=== PATIENT | female | born 1960 | race Caucasian/White ===

== ENCOUNTER 2022-01-26 23:51 | Observation (INO) | payer BC ==
[2022-01-27] MEDS ORDERED: SODIUM CHLORIDE 0.9% 1,000 ML IV STA (00:22)
[2022-01-27] MEDS ORDERED: NITROGLYCERIN SL TABS 0.4 MG TAB SUBLINGUAL STA (00:22)
--- NOTE | 2022-01-27 00:27 | ED ---
Chest Pain HPI - General Chief Complaint: Chest Pain Stated Complaint: Chest Pain Time Seen by Provider: 01/27/22 00:16 Source: patient, RN notes reviewed Mode of arrival: ambulatory Limitations: no limitations - History of Present Illness Initial Comments: This is a pleasant 61-year-old female presents to the right department with chest tightness which started yesterday which radiates to the neck and to the back. No headache, no fever or chills, no changes in vision or hearing, no sore throat or difficulty with speech, no neck pain, no shortness of breath, no abdominal pain, no nausea or vomiting, no changes in urination or bowel movements, no numbness or tingling, no extremity pain, no skin rashes or lesions. Past medical, surgical, social, and family history reviewed. MD Complaint: chest pain - Related Data Allergies Allergy/AdvReac Type Severity Reaction Status Date / Time No Known Allergies Allergy Verified 01/27/22 00:10 Review of Systems ROS Statement: Those systems with pertinent positive or pertinent negative responses have been documented in the HPI. ROS Other: All systems not noted in ROS Statement are negative. EKG Findings - EKG Comments: EKG Findings:: EKG done at 0058 reviewed by myself as well as attending physician reveals sinus rhythm with nonspecific ST and T-wave normalities. No evidence of significant ST elevation or depression. Normal axis. Poor R wave progression. Some baseline artifact. Normal QRS morphology. No comparison study Past Medical History Past Medical History: No Reported History History of Any Multi-Drug Resistant Organisms: None Reported Past Surgical History: No Surgical Hx Reported Past Psychological History: No Psychological Hx Reported Smoking Status: Current every day smoker Past Alcohol Use History: Occasional Past Drug Use History: None Reported General Exam - General Exam Comments Initial Comments: Patient hypertensive, remainder of vital signs are stable. Patient in no significant distress Limitations: no limitations General appearance: alert, in no apparent distress Head exam: Present: atraumatic, normocephalic, normal inspection Eye exam: Present: normal appearance, PERRL, EOMI. Absent: scleral icterus, conjunctival injection, periorbital swelling ENT exam: Present: normal exam, mucous membranes moist Neck exam: Present: normal inspection, full ROM. Absent: tenderness, meningismus, lymphadenopathy Respiratory exam: Present: normal lung sounds bilaterally, chest wall tenderness (Patient does have some anterior chest wall tenderness.). Absent: respiratory distress, wheezes, rales, rhonchi, stridor, accessory muscle use Cardiovascular Exam: Present: regular rate, normal rhythm, normal heart sounds. Absent: systolic murmur, diastolic murmur, rubs, gallop, clicks GI/Abdominal exam: Present: soft, normal bowel sounds. Absent: distended, tenderness, guarding, rebound, rigid Extremities exam: Present: normal inspection, full ROM, normal capillary refill. Absent: tenderness, pedal edema, joint swelling, calf tenderness Back exam: Present: normal inspection Neurological exam: Present: alert, oriented X3, CN II-XII intact Psychiatric exam: Present: normal affect, normal mood Skin exam: Present: warm, dry, intact, normal color. Absent: rash Course Vital Signs 01/27/22 00:06 Temperature 98.2 F Pulse Rate 85 Respiratory 20 Rate Blood Pressure 198/112 O2 Sat by Pulse 97 Oximetry - Reevaluation(s) Reevaluation #1: 01/27/22 02:55 Medical record is reviewed Patient improved, blood pressure down to 143/81 I'm in the room. Patient has no significant pain at this time. Patient is informed of results and questions answered Patient in no distress Chest Pain MDM - [facility] Patient is a cigarette smoker. Presents with chest pain which started yesterday. Radiating to the neck and back. Patient noted to be hypertensive greater than 190/110. Given the patient's symptomology, cardiac ischemia certainly within the differential. Patient does state that the pain seems to get worse when she moves. [place] skeletal pain possible. Does not appear to be consistent with pulmonary etiology. Not consistent with pulmonary embolism. Does not appear to be consistent with infectious etiology or pneumonia. Patient's heart score is 3. We'll give aspirin and apply Nitropaste once the CTA is received if normal. Patient was reevaluated and was improved after nitroglycerin. Patient's blood pressure come down after nitroglycerin. We'll apply nitroglycerin ointment. 2:53 AM. Still awaiting patient's official CTA chest results. The case was discussed in detail with ED attending physician. Presentation, findings, treatment plan discussed in detail. Manager Support Services Dr. Bro Awaiting call from the patient's PCP/admitting physician, Dr. Andino at 3:18 AM Disposition Clinical Impression: Chest pain, Hypertensive urgency Disposition: ADMITTED IP TO THIS HOSP Condition: Good Is patient prescribed a controlled substance at d/c from ED?: No Referrals: Ricardo Andino MD [Primary Care Provider] - 1-2 days Time of Disposition: 02:30 Decision to Admit Reason: Admit from EC Decision Time: 02:30
--- NOTE | 2022-01-27 01:18 | XR ---
EXAMINATION TYPE: XR chest 1V portable DATE OF EXAM: 01/27/2022 COMPARISON: NONE HISTORY: Chest pain TECHNIQUE: FINDINGS: Heart is normal. Lungs are clear of infiltrate. There is no heart failure. There are no hil ar masses. There is some minimal pleural reaction lateral left lung base. Bony thorax is intact. IMPRESSION: Minimal pleural reaction at the left lung base. Normal heart.
[2022-01-27 01:30] LABS: Basophils # (A) 0.1 k/uL (0-0.2); Basophils % (A) 1 %; Eosinophils # (A) 0.2 k/uL (0-0.7); Eosinophils % (A) 2 %; HCT 42.1 % (34.0-46.0); HGB 13.5 gm/dL (11.4-16.0); Lymphocytes # (A) 4.4 k/uL (1.0-4.8); Lymphocytes % (A) 36 %; MCH 28.1 pg (25.0-35.0); MCV 87.8 fL (80.0-100.0); Mean Platelet Volume 7.8; Monocytes # (A) 0.7 k/uL (0-1.0); Monocytes % (A) 6 %; Neutrophils # (A) 6.6 k/uL (1.3-7.7); Neutrophils % (A) 54 %; Platelet Count 335 k/uL (150-450); RBC 4.79 m/uL (3.80-5.40); RDW 13.2 % (11.5-15.5); WBC 12.2 k/uL (3.8-10.6)
[2022-01-27 01:44] LABS: ALT 37 U/L (4-34); AST 27 U/L (14-36); African American GFR (CKD) >90 (>60 ml/min/1.73 sqM); Albumin 4.1 g/dL (3.5-5.0); Alkaline Phosphatase 123 U/L (38-126); Anion Gap 5 mmol/L; Blood Urea Nitrogen 15 mg/dL (7-17); Calcium 9.2 mg/dL (8.4-10.2); Carbon Dioxide 25 mmol/L (22-30); Chloride 110 mmol/L (98-107); Glucose 94 mg/dL (74-99); Magnesium 1.8 mg/dL (1.6-2.3); Non-African American GFR(CKD) 83 (>60 ml/min/1.73 sqM); Potassium 3.9 mmol/L (3.5-5.1); Sodium 140 mmol/L (137-145); Total Bilirubin 0.2 mg/dL (0.2-1.3); Total Protein 6.9 g/dL (6.3-8.2)
--- NOTE | 2022-01-27 02:58 | CT ---
EXAMINATION TYPE: CT angio thor/abd pel aorta DATE OF EXAM: 01/27/2022 COMPARISON: HISTORY: chest pain radiating to back CT DLP: 1004.5 mGycm Automated exposure control for dose reduction was used. CONTRAST: Performed with IV Contrast, patient injected with 100 mL of Isovue 370. Images obtained from the thoracic inlet to the floor of the pelvis without and subsequently with the IV contrast. There are Three-D postprocessed images. The lungs are clear of consolidation. No pleural effusion. There is mild subsegmental atelectasis in the posterior lung bases. No pleural effusion. No pericardial effusion. Heart size is normal. There is no mediastinal adenopathy. There are no hilar masses. There is normal contrast opacification of the pulmonary arteries. No filling defect. Thoracic aorta is intact. No aneurysm or dissection. A ortic arch is intact. Liver spleen and stomach pancreas and gallbladder appear intact. The bile ducts are not dilated. Ther e is no adrenal mass. Kidneys show satisfactory contrast opacification. There is no hydronephrosis. A bdominal aorta is atheromatous. Ureters are not dilated. No retroperitoneal adenopathy. The bladder d istends smoothly. No inguinal hernia. No free fluid in the pelvis. No pelvic mass. Appendix is posterior and appears normal. There is no mesenteric edema. No ascites or free air. No sign of a bowel obstruction. Abnormal aorta has normal size. No aneurysm. There is arterial flow in the celiac artery and superior mesenteric artery. There is arterial flow in the renal and iliac and femoral arteries. No evidence o f arterial aneurysm or dissection. No evidence of hemodynamic stenosis. There is some plaque formatio n on the posterior wall of the lower abdominal aorta. No significant stenosis. The thoracic and lumbar spine are intact. No compression fracture. Bony pelvis is intact. The hip long nts are intact. IMPRESSION: There is some mild abdominal aortic atherosclerotic vascular disease with posterior plaque formation. No evidence of hemodynamic stenosis. No arterial aneurysm or dissection. No evidence of pulmonary embolism. There is some mild subsegmental atelectasis at the lung bases. No suspicious pulmonary mass.
[2022-01-27] MEDS ORDERED: NITROGLYCERIN OINT 1 INCH/GM PACKET TOPICAL STA (03:05)
[2022-01-27] MEDS ORDERED: ASPIRIN 81 MG PO STA (03:05)
[2022-01-27] MEDS ORDERED: NITROGLYCERIN SL TABS 0.4 MG TAB SUBLINGUAL PRN (03:06)
[2022-01-27] MEDS: NITROGLYCERIN OINT 1 INCH/GM PACKET TOPICAL SCH ×4 (06:28→23:16)
--- NOTE | 2022-01-27 10:11 | P.CRDCN ---
History of Present Illness Consult date: 01/27/22 Chief complaint: Chest pain History of present illness: This is a 61-year-old female patient with a past medical history significant for smoking as well as dyslipidemia as well as hypertension stopped taking her medications values ago presented to the hospital complaining of chest discomfort. She was in her usual state of health until yesterday when she was with her daughter and she started experiencing discomfort in the chest as a pressure on the chest with no radiation and no associated symptoms. She measured her pressure under pressure was elevated above 180 mmHg systolic. She decided to come to the emergency department. Her pressure has been elevated throughout her hospital stay. She underwent a workup including EKG showing si nus rhythm with no significant ST or T-wave abnormalities and also she underwent a blood work came in to be unremarkable for enzymes abnormalities. The rest of her blood work came in to be unremarkable. Currently the patient is chest pain- free. The pressure continues to be consistent with stage II hypertension with systolic pressure about 1 40 mmHg. Currently she is on Nitropaste as well. Past Medical History Past Medical History: No Reported History History of Any Multi-Drug Resistant Organisms: None Reported Past Surgical History: No Surgical Hx Reported Past Anesthesia/Blood Transfusion Reactions: No Reported Reaction Past Psychological History: No Psychological Hx Reported Smoking Status: Current every day smoker Past Alcohol Use History: Occasional Past Drug Use History: None Reported Medications and Allergies Allergies Allergy/AdvReac Type Severity Reaction Status Date / Time No Known Allergies Allergy Verified 01/27/22 00:10 Physical Exam Vitals: Vital Signs Temp Pulse Pulse Resp BP BP Pulse Ox 01/27/22 08:51 96 01/27/22 08:05 98 F 71 15 149/69 96 01/27/22 07:18 96 18 156/83 97 01/27/22 03:10 72 18 140/76 95 01/27/22 00:06 98.2 F 85 20 198/112 97 Intake and Output 01/26/22 01/27/22 01/27/22 22:59 06:59 14:59 Other: Weight 68.039 kg 68.039 kg - Constitutional General appearance: no acute distress - Respiratory Respiratory: bilateral: CTA - Cardiovascular Rhythm: regular Heart sounds: normal: S1, S2 Abnormal Heart Sounds: systolic murmur Results 01/27/22 01:22 01/27/22 01:22 Cardiac Enzymes 01/27/22 01/27/22 01/27/22 Range/Units 01:22 01:22 05:37 AST 27 (14-36) U/L Troponin I <0.012 <0.012 (0.000-0.034) ng/mL CBC 01/27/22 Range/Units 01:22 WBC 12.2 H (3.8-10.6) k/uL RBC 4.79 (3.80-5.40) m/uL Hgb 13.5 (11.4-16.0) gm/dL Hct 42.1 (34.0-46.0) % Plt Count 335 (150-450) k/uL Comprehensive Metabolic Panel 01/27/22 Range/Units 01:22 Sodium 140 (137-145) mmol/L Potassium 3.9 (3.5-5.1) mmol/L Chloride 110 H (98-107) mmol/L Carbon Dioxide 25 (22-30) mmol/L BUN 15 (7-17) mg/dL Creatinine 0.78 (0.52-1.04) mg/dL Glucose 94 (74-99) mg/dL Calcium 9.2 (8.4-10.2) mg/dL AST 27 (14-36) U/L ALT 37 H (4-34) U/L Alkaline Phosphatase 123 (38-126) U/L Total Protein 6.9 (6.3-8.2) g/dL Albumin 4.1 (3.5-5.0) g/dL Current Medications Generic Name Dose Route Start Last Admin Trade Name Freq PRN Reason Stop Dose Admin Aspirin 325 mg 01/28/22 09:00 Aspirin 325 Mg Tab PO DAILY WADE HCTZ/Losartan Potassium 1 each 01/27/22 10:15 Losartan-Hctz 50-12.5 Mg 1 Each Tab PO DAILY WADE Heparin Sodium (Porcine) 5,000 unit 01/27/22 08:00 Heparin Sodium,Porcine/Pf 5,000 Unit/0.5 Ml Syringe SQ Q8HR WADE Sodium Chloride 1,000 mls @ 100 mls/hr 01/27/22 00:22 Saline 0.9% IV 01/27/22 10:21 .Q10H STA Nitroglycerin 0.4 mg 01/27/22 03:06 Nitroglycerin Sl Tabs 0.4 Mg Tab SUBLINGUAL Q5M PRN Chest Pain Nitroglycerin 1 inch 01/27/22 06:00 01/27/22 06:28 Nitroglycerin Oint 1 Inch/Gm Packet TOPICAL 1 inch Q6HR WADE Administration Intake and Output 01/26/22 01/27/22 01/27/22 22:59 06:59 14:59 Other: Weight 68.039 kg 68.039 kg Patient Weight 01/28/22 06:59 Weight 68.039 kg 01/27/22 01:22 01/27/22 01:22 Assessment and Plan Assessment: Assessment #1 hypertension emergency #2 chest discomfort could be secondary to hypertension emergency. Severe CAD to be ruled out given her multiple risk factors #3 history of smoking #4 dyslipidemia. Not on any medication #5 systolic murmur Plan #1 acute coronary event was ruled out #2 start the patient on 2 blood pressure medications giving that she is at stage II hypertension #3 start the patient on losartan/hydrochlorothiazide #4 obtain an echocardiogram to assess the etiology of the systolic murmur #5 further recommendation to follow the echocardiogram. #6 she needs to be ruled out for CAD as well.
[2022-01-27] MEDS ORDERED: CAFFEINE CITRATE 60 MG/3 ML VIAL IV PRN (10:22)
[2022-01-27] MEDS ORDERED: AMINOPHYLLINE 500 MG/20 ML VIAL IV PRN (10:22)
--- NOTE | 2022-01-27 10:35 | P.HPIM ---
History of Present Illness 61-year-old pleasant female came compensative chest discomfort restarted yesterday which resolved at this time it was episodic patient with blood pressure was found to be elevated patient denied any lightheadedness [place] associated with that patient just pain is nonpleuritic not associated with food. Chest pain is mild to moderate in severity nonradiating. Patient is found to have highly elevated blood pressure above 180 systolic and it was believed hypertensive urgency is making her have chest pain patient was evaluated cardiology and patient was started on hydrocortisone and losartan. I will also obtain a stress test tomorrow. Patient does have a smoking history does smoke about one pack of cigarettes per day trying to quit. EKG did not show any significant abnormality troponins were negative. REVIEW OF SYSTEMS: CONSTITUTIONAL: No fever, no malaise, no fatigue. HEENT: No recent visual problems or hearing problems. Denied any sore throat. CARDIOVASCULAR: No orthopnea, PND, no palpitations, no syncope. PULMONARY: No shortness of breath, no cough, no hemoptysis. GASTROINTESTINAL: No diarrhea, no nausea, no vomiting, no abdominal pain. NEUROLOGICAL: No headaches, no weakness, no numbness. HEMATOLOGICAL: Denies any bleeding or petechiae. GENITOURINARY: Denies any burning micturition, frequency, or urgency. MUSCULOSKELETAL/RHEUMATOLOGICAL: Denies any joint pain, swelling, or any muscle pain. ENDOCRINE: Denies any polyuria or polydipsia. The rest of the 14-point review of systems is negative. PHYSICAL EXAMINATION: GENERAL: The patient is alert and oriented x3, not in any acute distress. Well developed, well nourished. HEENT: Pupils are round and equally reacting to light. EOMI. No scleral icterus. No conjunctival pallor. Normocephalic, atraumatic. No pharyngeal erythema. No thyromegaly. CARDIOVASCULAR: S1 and S2 present. No murmurs, rubs, or gallops. PULMONARY: Chest is clear to auscultation, no wheezing or crackles. ABDOMEN: Soft, nontender, nondistended, normoactive bowel sounds. No palpable organomegaly. MUSCULOSKELETAL: No joint swelling or deformity. EXTREMITIES: No cyanosis, clubbing, or pedal edema. NEUROLOGICAL: Gross neurological examination did not reveal any focal deficits. SKIN: No rashes. Assessment and plan -Possible hypertensive urgency can you with present medications that his hydrocodone thiazide and losartan which were added can you to monitor her overnight. -Chest pain rule out acute coronary syndromes patient will undergo stress test tomorrow if that's negative patient will be discharged tomorrow -Nicotine use: Counseling was provided DVT prophylaxis: Early ambulation Past Medical History Past Medical History: No Reported History History of Any Multi-Drug Resistant Organisms: None Reported Past Surgical History: No Surgical Hx Reported Past Anesthesia/Blood Transfusion Reactions: No Reported Reaction Past Psychological History: No Psychological Hx Reported Smoking Status: Current every day smoker Past Alcohol Use History: Occasional Past Drug Use History: None Reported Medications and Allergies Allergies Allergy/AdvReac Type Severity Reaction Status Date / Time No Known Allergies Allergy Verified 01/27/22 00:10 Physical Exam Vitals: Vital Signs Temp Pulse Pulse Resp BP BP Pulse Ox 01/27/22 08:51 96 01/27/22 08:05 98 F 71 15 149/69 96 01/27/22 07:18 96 18 156/83 97 01/27/22 03:10 72 18 140/76 95 01/27/22 00:06 98.2 F 85 20 198/112 97 Intake and Output 01/26/22 01/27/22 01/27/22 22:59 06:59 14:59 Other: Weight 68.039 kg 68.039 kg Results CBC & Chem 7: 01/27/22 01:22 01/27/22 01:22 Labs: Abnormal Lab Results - Last 24 Hours (Table) 01/27/22 01/27/22 Range/Units 01:22 01:22 WBC 12.2 H (3.8-10.6) k/uL Chloride 110 H (98-107) mmol/L ALT 37 H (4-34) U/L Thrombosis Risk Factor Assmnt - Choose All That Apply Any of the Below Risk Factors Present?: No Other Risk Factors: Yes Each Risk Factor Represents 2 Points: Age 61-74 years Thrombosis Risk Factor Assessment Total Risk Factor Score: 2 Thrombosis Risk Factor Assessment Level: Low Risk
[2022-01-27] MEDS: HEPARIN SODIUM,PORCINE/PF 5,000 UNIT/0.5 ML SYRINGE SQ SCH ×3 (11:12→23:17)
[2022-01-27] MEDS: LOSARTAN-HCTZ 50-12.5 MG 1 EACH TAB PO SCH (11:13)
[2022-01-27] MEDS ORDERED: ACETAMINOPHEN TAB 325 MG TAB PO PRN (17:21)
[2022-01-28] MEDS: NITROGLYCERIN OINT 1 INCH/GM PACKET TOPICAL SCH (05:16)
[2022-01-28] MEDS ORDERED: REGADENOSON 0.4 MG/5 ML SYRINGE IV PRN (07:00)
[2022-01-28 07:37] VITALS: RESP 18; TEMP 98
[2022-01-28] MEDS: HEPARIN SODIUM,PORCINE/PF 5,000 UNIT/0.5 ML SYRINGE SQ SCH (07:44)
[2022-01-28] MEDS: LOSARTAN-HCTZ 50-12.5 MG 1 EACH TAB PO SCH (07:46)
[2022-01-28] MEDS ORDERED: ASPIRIN 81 MG PO SCH (09:00)
[2022-01-28] MEDS ORDERED: ASPIRIN 325 MG TAB PO SCH (09:00)
[2022-01-28 09:06] LABS: Chol/HDL Ratio 5.81 Ratio; LDL Cholesterol,Calculated 153.2 mg/dL (0.0-131.0)
--- NOTE | 2022-01-28 09:28 | P.PN ---
Subjective This is a 61-year-old female patient with a past medical history significant for smoking , dyslipidemia, hypertension stopped taking her medications values ago presented to the hospital complaining of chest discomfort. She does not follow with icu clerk. She was in her usual state of health until yesterday when she was with her daughter and she started experiencing discomfort in the chest as a pressure on the chest with no radiation and no associated symptoms. She measured her pressure under pressure was elevated above 180 mmHg systolic. She decided to come to the emergency department. Her pressure has been elevated throughout her hospital stay. She underwent a workup including EKG showing sinus rhythm with no significant ST or T-wave abnormalities and also she underwent a blood work came in to be unremarkable Troponin negative x 3. Patient seen and examined at bedside, no acute distress. She denies any chest pain or shortness of breath. Her vital signs are stable. Her blood pressure has improved. Blood pressure 144/69, heart rate 72, afebrile. She is currently maintained on aspirin 81 mg daily, losartanhydrochlorothiazide 5012.5 mg daily GENERAL: Well-appearing, well-nourished and in no acute distress. NECK: Supple without JVD or thyromegaly. LUNGS: Breath sounds clear to auscultation bilaterally. Respiration equal and unlabored. No wheezes, rales or rhonchi. HEART: Regular rate and rhythm without murmurs, rubs or gallops. S1 and S2 heard. EXTREMITIES: Normal range of motion, no edema. No clubbing or cyanosis. Peripheral pulses intact. ASSESSMENT Chest pain, atypical, acute coronary syndrome has ruled out Chronic nicotine dependence Hypertension Dyslipidemia PLAN Continue current cardiac medications Plan for Lexiscan stress test and echocardiogram today Continue Losartan/HCtz If Stress test with no evidence of reversible ischemia, no further inpatient workup from cardiology perspective, if abnormal with discuss coronary angiogram. Recommend follow up outpatient. Nurse Practitioner note has been reviewed, I agree with a documented findings and plan of care. Patient was seen and examined. Objective - Vital Signs Vital signs: Vital Signs Temp 98 F 01/28/22 07:00 Pulse 80 01/28/22 07:00 Resp 18 01/28/22 07:00 BP 174/90 01/28/22 07:00 Pulse Ox 96 01/28/22 07:00 FiO2 Intake & Output 01/27/22 01/28/22 01/28/22 18:59 06:59 18:59 Intake Total 240 500 Balance 240 500 Weight 68.039 kg Intake: Oral 240 500 Other: Voiding Method Toilet # Voids 1 1 1 - Labs CBC & Chem 7: 01/27/22 01:22 01/27/22 01:22 Labs: Abnormal Lab Results - Last 24 Hours (Table) 01/28/22 Range/Units 04:08 Triglycerides 302.00 H (0.00-149.00) mg/dL Cholesterol 258.00 H (0.00-200.00) mg/dL LDL Cholesterol, Calc 153.2 H (0.0-131.0) mg/dL VLDL Cholesterol, Calc 60.40 H (5.00-40.00) mg/dL
--- NOTE | 2022-01-28 11:43 | CA ---
Transthoracic Echo Report Name: Zeenat Rico Age: 61 Gender: F : 1960 Exam Date: 01/28/2022 08:47 Exam Location: [facility] Ht (in): 63 Wt (lb): 150 Ordering Physician: Roseanne Castellano Attending/Referring Phys: Jute Bag Cutting Machine Operator Kiley Garcia RDCS Procedure CPT: Indications: chest pain LV function Cardiac Hx: Technical Quality: Good Contrast 1: Total Dose (mL): Contrast 2: Total Dose (mL): MEASUREMENTS (Male / Female) Normal Values 2D ECHO LV Diastolic Diameter PLAX 3.9 cm 4.2 - 5.9 / 3.9 - 5.3 cm LV Systolic Diameter PLAX 2.4 cm IVS Diastolic Thickness 1.4 cm 0.6 - 1.0 / 0.6 - 0.9 cm LVPW Diastolic Thickness 1.2 cm 0.6 - 1.0 / 0.6 - 0.9 cm LV Relative Wall Thickness 0.7 RV Internal Dim ED PLAX 3.0 cm LA Systolic Diameter LX 3.1 cm 3.0 - 4.0 / 2.7 - 3.8 cm LA Volume 39.9 cm??? 18 - 58 / 22 - 52 cm??? M-MODE Aortic Root Diameter MM 2.9 cm MV E Point Septal Separation 0.4 cm AV Cusp Separation MM 2.2 cm DOPPLER AV Peak Velocity 133.6 cm/s AV Peak Gradient 7.1 mmHg MV Area PHT 3.1 cm??? Mitral E Point Velocity 90.7 cm/s Mitral A Point Velocity 72.3 cm/s Mitral E to A Ratio 1.3 MV Deceleration Time 244.5 ms TR Peak Velocity 204.1 cm/s TR Peak Gradient 16.7 mmHg Right Ventricular Systolic Press 20.5 mmHg FINDINGS Left Ventricle Left ventricular ejection fraction is estimated at 60-65 %. Left ventricular cavity size normal. Moderate concentric left ventricular hypertrophy. Right Ventricle Normal right ventricular size and function. Right ventricular systolic pressure within normal limits. Right Atrium Normal right atrial size. Left Atrium Normal left atrial size. No evidence for an atrial septal defect. Mitral Valve Structurally normal mitral valve. No mitral stenosis, regurgitation or prolapse. Aortic Valve Trileaflet aortic valve. No aortic valve stenosis or regurgitation. Tricuspid Valve Mild tricuspid regurgitation. Pulmonic Valve Trace pulmonic regurgitation. Pericardium Normal pericardium. No pericardial effusion. Aorta Normal size aortic root and proximal ascending aorta. CONCLUSIONS Normal LV systolic function Previewed by: Dr. Sabino Graham MD (Electronically Signed) Final Date: 28 January 2022 11:42
[2022-01-28] MEDS ORDERED: REGADENOSON 0.4 MG/5 ML SYRINGE IV ONE (12:36)
--- NOTE | 2022-01-28 12:42 | NM ---
EXAMINATION TYPE: NM stress lexiscan cardiolite DATE OF EXAM: 01/28/2022 COMPARISON: NONE HISTORY: Chest pain TECHNIQUE: After the intravenous administration of 10.2 mCi Tc 99m Sestamibi - Cardiolite resting SP ECT images acquired 45 minutes post injection. The patient received 0.4mg Lexiscan, 26.21 mCi Tc 99m Sestamibi - Stress images obtained 30 minutes p ost injection FINDINGS: Review of stress and rest SPECT images demonstrates no distinct perfusion abnormality. Gated analysi s shows normal wall motion with an estimated left ventricular ejection fraction of 60 %. IMPRESSION: No scintigraphic evidence for reversible ischemia.
[2022-01-28 14:51] VITALS: BP 138/77; PULSE 91
--- NOTE | 2022-01-30 13:19 | P.DS ---
Providers Date of admission: 01/27/22 03:25 Expected date of discharge: 01/28/22 Attending physician: Ricardo Andino MD Consults: 01/27/22 07:59 Consult Physician Routine Consulting Provider: Chris Sloan Consult Reason/Comments: chest pain Do you want consulting provider notified?: Yes Primary care physician: Ricardo Andino MD Hospital Course: Final diagnoses Chest pain, stress tests pending Hypertensive urgency Nicotine dependence This is 61-year-old female admitted with chest pain, nonradiating, hypertension and multiple other medical issues. Evaluated by cardiology, losartan/HCTZ initiated. Scheduled for Lexiscan stress test/echo today. Significant clinical improvement. Blood pressure controlled, no further chest pain. Patient will be discharged home today in a stable condition with guarded prognosis pending Lexiscan stress test/echo results, final DC recommendations and clearance per cardiology. The impression and plan of care has been dictated as directed. : I performed a history and examination of this patient, discussed the same with the dictator. I agree with the dictator's note ,documented as a scribe. Any additional findings or plans will be noted. Patient Condition at Discharge: Stable Plan - Discharge Summary Discharge Rx Participant: No New Discharge Prescriptions: New Atorvastatin [Lipitor] 20 mg PO HS #30 tablet Losartan-Hctz 50-12.5 mg [Hyzaar 50-12.5] 1 each PO DAILY #30 tab Continue Penicillin V Potassium [Pen Vee K] 500 mg PO Q6H Discharge Medication List Penicillin V Potassium [Pen Vee K] 500 mg PO Q6H 01/27/22 [History] Atorvastatin [Lipitor] 20 mg PO HS #30 tablet 01/28/22 [Rx] Losartan-Hctz 50-12.5 mg [Hyzaar 50-12.5] 1 each PO DAILY #30 tab 01/28/22 [Rx] Follow up Appointment(s)/Referral(s): Ricardo Andino MD [Primary Care Provider] - 3 Days Chris Sloan MD [STAFF PHYSICIAN] - 2 Weeks (Office will call patient with time and date of appointment.) Patient Instructions/Handouts: Chest Pain (DC) Discharge Disposition: HOME SELF-CARE
== END 2022-01-28 15:25 | disposition home or self-care (01) ==
LOC: EC 23:51 → 6NMEDSUR 01-27 03:25
PROVIDERS: ADMIT Family Medicine; ATTEND Family Medicine
DX: R07.89 Other chest pain (principal); I16.0 Hypertensive urgency; F17.210 Nicotine dependence, cigarettes, uncomplicated; J98.11 Atelectasis; I70.0 Atherosclerosis of aorta; E78.5 Hyperlipidemia, unspecified; I11.9 Hypertensive heart disease without heart failure; I37.1 Nonrheumatic pulmonary valve insufficiency; I07.1 Rheumatic tricuspid insufficiency
CPT/HCPCS: 96372 ×2; 99285; 36415; 93005; 93017; 93306; 80061; 80053; 83735; 84484; 85025; 71045; 71275; 74174; 78452; G0378 ×2; A9500; J2785; Q9967; J1644 ×2

== ENCOUNTER → 2022-04-09 | Outpatient (CLI) | payer BC ==
--- NOTE | 2022-04-10 09:48 | MM ---
Reason for Exam: Screening (asymptomatic). Patient History: Menarche at age 13. First Full-Term at age 15. Left ovary removed at age 52. Right ovary removed at age 52. Hysterectomy at age 52. Postmenopausal. Risk Values: Vicki 5 year model risk: 1.1%. NCI Lifetime model risk: 5.0%. Prior Study Comparison: No prior studies available for comparison. Tissue Density: The breast tissue is heterogeneously dense. This may lower the sensitivity of mammography. Findings: Analyzed By CAD. There is no suspicious group of microcalcifications. Benign calcifications within both breasts. Stable chronic nodularity within the right breast. Left retroareolar asymmetry demonstrated on the MLO view. Overall Assessment: Incomplete: need additional imaging evaluation, BI-RAD 0 Management: Diagnostic Mammogram of the left breast. A clinical breast exam by your physician is recommended on an annual basis and results should be correlated with mammographic findings. [facility] will attempt to contact patient to return for supplemental views and ultrasound if indicated. Electronically signed and approved by: Zelalem Gomez D.O.
== END | disposition home or self-care (01) ==
LOC: RADMAMWWP 11:00
PROVIDERS: ATTEND Family Medicine
DX: Z12.31 Encounter for screening mammogram for malignant neoplasm of breast (principal); Z78.0 Asymptomatic menopausal state
CPT/HCPCS: 77067

== ENCOUNTER → 2022-04-17 | Outpatient (CLI) | payer BC ==
--- NOTE | 2022-04-17 10:38 | MM ---
Reason for Exam: Clinical finding. Last screening mammogram was performed less than 1 month ago. Patient History: Menarche at age 13. First Full-Term at age 15. Left ovary removed at age 52. Right ovary removed at age 52. Hysterectomy at age 52. Postmenopausal. Risk Values: Vicki 5 year model risk: 1.1%. NCI Lifetime model risk: 5.0%. Prior Study Comparison: 04/09/2022 Bilateral MG screening mammo w CAD, [facility]. Tissue Density: Left: The breast tissue is heterogeneously dense. This may lower the sensitivity of mammography. Findings: Analyzed By CAD. No discrete focal asymmetry is evident corresponding to prior subareolar density. Short-term follow-up can be performed. No suspicious groups of microcalcifications, spiculated or lobular masses, architectural distortion or other secondary signs of malignancy are mammographically apparent. Overall Assessment: Probably benign, BI-RAD 3 Management: Diagnostic Mammogram of the left breast in 6 months. A negative mammogram report should not preclude additional follow up of suspicious palpable abnormalities. Patient should continue monthly self breast exam. A clinical breast exam by your physician is recommended on an annual basis and results should be correlated with mammographic findings. Electronically signed and approved by: Ty Lee D.O. Radiologis
== END | disposition home or self-care (01) ==
LOC: RADMAMWWP 10:11
PROVIDERS: ATTEND Family Medicine
DX: R92.8 Other abnormal and inconclusive findings on diagnostic imaging of breast (principal); Z78.0 Asymptomatic menopausal state; Z90.721 Acquired absence of ovaries, unilateral
CPT/HCPCS: 77065

== ENCOUNTER 2022-05-06 10:40 | Day surgery (SDC) | payer BC ==
[~2022-05-06 10:40] MED LIST: LACTATED RINGERS 1,000 ML IV SCH
[2022-05-06 11:32] VITALS: RESP 16; TEMP 98
[2022-05-06] MEDS ORDERED: PROPOFOL 10 MG/ML 20 ML VIAL IV ONE (11:43)
[2022-05-06] MEDS ORDERED: LIDOCAINE 2% INJ 20 MG/ML (2 ML VIAL) ONE (11:43)
--- NOTE | 2022-05-06 11:47 | P.GSHP ---
History of Present Illness H&P Date: 05/06/22 Chief Complaint: Screening colonoscopy This a 62-year-old female presents today for screening colonoscopy. Patient denies a significant GI complaints. Past Medical History Past Medical History: Hyperlipidemia, Hypertension Additional Past Medical History / Comment(s): hemorrhoids. seeing some blood in stools after wiping. History of Any Multi-Drug Resistant Organisms: None Reported Past Surgical History: Hernia Repair, Hysterectomy Additional Past Surgical History / Comment(s): ovarian cyst removal. rt inguinal hernia repair. Past Anesthesia/Blood Transfusion Reactions: No Reported Reaction Additional Past Anesthesia/Blood Transfusion Reaction / Comment(s): no blood transfusions Smoking Status: Current every day smoker - Past Family History Father Family Medical History: Cancer, Diabetes Mellitus Additional Family Medical History / Comment(s): prostate cancer Mother Additional Family Medical History / Comment(s): dementia Medications and Allergies Home Medications Medication Instructions Recorded Confirmed Type Atorvastatin [Lipitor] 20 mg PO HS #30 tablet 01/28/22 05/06/22 Rx Losartan/Hydrochlorothiazide 1 tab PO DAILY 05/03/22 05/06/22 History [Losartan-Hctz 100-12.5 mg Tab] Unk Coq10 1 tab PO DAILY 05/03/22 05/06/22 History Allergies Allergy/AdvReac Type Severity Reaction Status Date / Time No Known Allergies Allergy Verified 05/06/22 11:20 Surgical - Exam Vital Signs Temp Pulse Resp BP Pulse Ox 98.0 F 72 16 169/75 96 05/06/22 11:20 05/06/22 11:20 05/06/22 11:20 05/06/22 11:20 05/06/22 11:20 - General well developed, well nourished, no distress - Eyes PERRL - ENT normal pinna - Neck no masses - Respiratory normal expansion - Cardiovascular Rhythm: regular - Abdomen Abdomen: soft, non tender Assessment and Plan Assessment: We'll perform screening colonoscopy
--- NOTE | 2022-05-06 11:57 | P.OP ---
Date of Procedure: 05/06/22 Preoperative Diagnosis: Screening colonoscopy Postoperative Diagnosis: Normal colon Procedure(s) Performed: Colonoscopy Anesthesia: MAC Surgeon: Rivas Killian Pathology: none sent Condition: stable Disposition: PACU Description of Procedure: The patient's placed on the endoscopy table in the lateral position. She received IV sedation. Digital rectal exam was performed. This revealed no abnormalities. The flexible colonoscope was then placed patient anus passed throughout the entire colon. The ileocecal valve was visualized. The cecum, ascending and transverse colon appeared normal. The descending and sigmoid colon appeared normal. Scope was brought back the rectum was normal. Scope was then withdrawn for patient.
[2022-05-06 12:19] VITALS: BP 124/79; PULSE 62
== END 2022-05-06 12:40 | disposition home or self-care (01) ==
LOC: ORWHC2ENDO 10:40
PROVIDERS: ATTEND Surgery
DX: Z12.11 Encounter for screening for malignant neoplasm of colon (principal); I10 Essential (primary) hypertension; E78.5 Hyperlipidemia, unspecified; F17.200 Nicotine dependence, unspecified, uncomplicated
CPT/HCPCS: 45378; J2704; J2001

== ENCOUNTER → 2022-12-26 | Outpatient (CLI) | payer BC ==
--- NOTE | 2022-12-26 07:47 | MM ---
Reason for Exam: Follow-up at short interval from prior study. Last screening mammogram was performed 9 month(s) ago. Patient History: Menarche at age 13. First Full-Term at age 15. Left ovary removed at age 52. Right ovary removed at age 52. Hysterectomy at age 52. Postmenopausal. Risk Values: Vicki 5 year model risk: 1.1%. NCI Lifetime model risk: 5.0%. Prior Study Comparison: 04/09/2022 Bilateral MG screening mammo w CAD, [facility]. 04/17/2022 Left MG work up mamm w CAD LT, [facility]. Tissue Density: Left: The breast tissue is heterogeneously dense. This may lower the sensitivity of mammography. Findings: Analyzed By CAD. No new suspicious mass within the left breast. No worrisome group microcalcifications within the left breast. No architectural distortion. Benign-appearing stable calcification identified. Previously seen focal asymmetry is again not visualized on today's exam. Overall Assessment: Benign, BI-RAD 2 Management: Screening Mammogram of both breasts in 6 months. A clinical breast exam by your physician is recommended on an annual basis and results should be correlated with mammographic findings. This exam should not preclude additional follow-up of suspicious palpable abnormalities. Results were given to the patient verbally at the time of exam. Note on Vicki scores and lifetime risk: 1. A Vicki score greater than 3% is considered moderate risk. If this is the case, consider specialist referral to assess eligibility for a risk reducing agent. If overall lifetime risk for the development of breast cancer is 20% or higher, the patient may qualify for future screening with alternating mammogram and breast MRI. Electronically signed and approved by: Zelalem Gomez D.O.
== END | disposition home or self-care (01) ==
LOC: RADMAMWWP 07:01
PROVIDERS: ATTEND Family Medicine
DX: R92.8 Other abnormal and inconclusive findings on diagnostic imaging of breast (principal); Z78.0 Asymptomatic menopausal state
CPT/HCPCS: 77061; 77065

== ENCOUNTER → 2024-07-02 | Outpatient (CLI) | payer BC ==
--- NOTE | 2024-07-02 10:11 | CT ---
EXAMINATION TYPE: CT chest w con DATE OF EXAM: 07/02/2024 COMPARISON: None HISTORY: 64-year-old female R91.8, pulmonary nodule TECHNIQUE: Contiguous axial scanning of the chest after the administration of 80 mL of Isovue 300. C oronal/sagittal reconstructions performed. CT DLP: 220.2mGycm. Automatic exposure control utilized for a dose reduction. FINDINGS: The heart is normal size without pericardial effusion. Aorta is normal caliber with mild atherosclerotic arch calcifications with conventional arch vessel b ranching anatomy. Clustered prominent mediastinal lymph nodes measuring up to 8 mm. No bindu thoracic lymphadenopathy b y CT size criteria. There is moderate upper lung emphysematous change. Some minimal thickening of the emphysematous cyst ferguson right midlung, axial image 35. No consolidation or pleural effusion. 4 mm right anterior right upper lobe pulmonary nodule, axial image 26. Punctate 2 mm posterior right midlung pulmonary nodule, axial image 29 Punctate 3 mm left mid lung pulmonary nodule, axial image 30. Otherwise, no suspicious pulmonary nodule is seen. Visualized upper abdomen shows mild to moderate nonstenotic plaquing calcification in the abdominal a april. Tiny cyst 8mm posterior left renal cortical cyst. Bones: No osseous destructive process. IMPRESSION: 1. COPD with moderate emphysema especially in the upper lungs. 2. Some minimal thickening of the emphysematous cyst ferguson within the right midlung may be chronic po stinflammatory change. Recommend 3-6 month follow-up CT to exclude any early developing abnormal soft tissue. 3. A few additional scattered tiny nodules measuring up to 4 mm can be reassessed at that time as wel l but are suspected benign. [facility], Workstation: [email or web address], 07/02/2024 10:08 AM
== END | disposition home or self-care (01) ==
LOC: RADCTMAIN 07:01
PROVIDERS: ATTEND Family Medicine
DX: J44.9 Chronic obstructive pulmonary disease, unspecified (principal); J43.9 Emphysema, unspecified; R91.8 Other nonspecific abnormal finding of lung field
CPT/HCPCS: 71260; Q9967